=== PATIENT | female | born 1980 | race Caucasian/White ===

== ENCOUNTER 2019-02-20 20:17 | Emergency (ER) | payer MEDICAID ==
[2019-02-20 20:53] VITALS: BP 144/98
--- NOTE | 2019-02-20 21:01 | EDM.PDOC ---
ED HPI GENERAL MEDICAL PROBLEM - General Chief Complaint: General Stated Complaint: COLONOSCOPY PREP ISSUES Time Seen by Provider: 02/20/19 20:45 Source of Information: Reports: Patient History Limitations: Reports: No Limitations - History of Present Illness INITIAL COMMENTS - FREE TEXT/NARRATIVE: Poornima comes into [facility] ED with sxs of dizziness, lt headiness, malaise, and restlessness since initiating prep for a colonoscopy 2 days ago. There is no headache, chest pain, SOB, nausea, vomiting, or dilia abdominal pain. She has a hx of chronic diarrhea, without wt loss. There has been no blood in the stools observable. She is a Type II DM on insulin, and has been on clear liquids for the past 2 days. Her home BS 297 mg% at 6 pm. - Related Data Allergies Allergy/AdvReac Type Severity Reaction Status Date / Time citalopram [From Celexa] Allergy Other Verified 02/20/19 20:59 insulin glargine Allergy Burning Verified 02/20/19 20:58 [From Lantus U-100 Insulin] Home Meds: Home Meds Flaxseed Oil [Flax Oil] 1,000 mg PO DAILY 12/04/13 [History] Insulin Aspart [NovoLOG] 26 unit SQ TID 12/04/13 [History] metFORMIN [Glucophage XR] 500 mg PO DAILY 08/22/14 [History] Insulin Detemir [Levemir] 45 units SQ BID 01/03/16 [History] Exenatide Microspheres [Bydureon Pen] 2 mg SQ WEEKLY 06/25/18 [History] Lisinopril 2.5 mg PO DAILY 06/25/18 [History] Norgestimate-Ethinyl Estradiol [Jones-Linyah 28 Tablet] 1 tab PO DAILY 06/25/18 [ History] Propranolol [Inderal LA] 80 mg PO DAILY 06/25/18 [History] atorvaSTATin [Lipitor] 10 mg PO DAILY 06/25/18 [History] buPROPion [buPROPion XL] 150 mg PO DAILY 06/25/18 [History] Aspirin [Adult Low Dose Aspirin EC] 81 mg PO DAILY 02/20/19 [History] Hyoscyamine [Levsin] 0.125 mg PO Q4HR PRN 02/20/19 [History] Ketorolac [Toradol] 10 mg PO Q4H PRN 02/20/19 [History] Levothyroxine Sodium [Synthroid] 100 mcg PO DAILY 02/20/19 [History] Nitroglycerin 1 tab SL ASDIRECTED PRN 02/20/19 [History] Past Medical History - Past Health History Medical/Surgical History: Denies Medical/Surgical History Cardiovascular History: Reports: Hypertension Gastrointestinal History: Reports: Chronic Diarrhea Endocrine/Metabolic History: Reports: Diabetes, Type I, Hypothyroidism Social & Family History - Tobacco Use Smoking Status *Q: Former Smoker Packs/Tins Daily: 16 Used Tobacco, but Quit: No - Recreational Drug Use Other Recreational Drug Type: Patient denies recreational drug use. ED ROS GENERAL - Review of Systems Review Of Systems: ROS reveals no pertinent complaints other than HPI. ED EXAM, GENERAL - Physical Exam Exam: See Below Exam Limited By: No Limitations General Appearance: Alert, WD/WN, No Apparent Distress, Anxious, Obese Eye Exam: Bilateral Eye: EOMI, Normal Inspection, PERRL Ears: Normal External Exam Nose: Normal Inspection Throat/Mouth: Normal Inspection, Normal Oropharynx Head: Normocephalic Neck: Normal Inspection, Supple Respiratory/Chest: Lungs Clear, Normal Breath Sounds Cardiovascular: Regular Rate, Rhythm, No Murmur GI/Abdominal: Normal Bowel Sounds, Soft, Non-Tender, No Organomegaly, No Distention, No Mass (Female) Exam: Deferred Rectal (Female) Exam: Deferred Back Exam: Normal Inspection Extremities: Normal Inspection Neurological: Alert, Oriented, CN II-XII Intact, Normal Cognition, No Motor/ Sensory Deficits Psychiatric: Normal Affect, Anxious Skin Exam: Warm, Dry, Intact, Normal Color Lymphatic: No Adenopathy Course - Vital Signs Text/Narrative:: Screening labs were baseline. Reassurance given, and cleared to proceed with colonoscopy tomorrow. Last Recorded V/S: Last Vital Signs Temp 36.7 C 02/20/19 20:25 Pulse 114 H 02/20/19 20:25 Resp 16 02/20/19 20:25 BP 144/98 H 02/20/19 20:25 Pulse Ox 98 02/20/19 20:25 - Orders/Labs/Meds Labs: Laboratory Tests 02/20/19 02/20/19 Range/Units 21:03 21:03 WBC 12.9 H (4.5-12.0) X10-3/uL RBC 4.55 (3.23-5.20) x10(6)uL Hgb 13.7 (11.5-15.5) g/dL Hct 39.0 (30.0-51.3) % MCV 85.8 (80-96) fL MCH 30.1 (27.7-33.6) pg MCHC 35.0 (32.2-35.4) g/dL RDW 12.8 (11.5-15.5) % Plt Count 320 (125-369) X10(3)uL MPV 7.9 (7.4-10.4) fL Neut % (Auto) 60.7 (46-82) % Lymph % (Auto) 30.3 (13-37) % Jones % (Auto) 5.7 (4-12) % Eos % (Auto) 3 (1.0-5.0) % Baso % (Auto) 1 (0-2) % Neut # (Auto) 7.8 (1.6-8.3) # Lymph # (Auto) 3.9 (0.6-5.0) # Jones # (Auto) 0.7 (0.0-1.3) # Eos # (Auto) 0.4 (0.0-0.8) # Baso # (Auto) 0.1 (0.0-0.2) # Sodium 136 (135-145) mmol/L Potassium 4.3 (3.5-5.3) mmol/L Chloride 100 (100-110) mmol/L Carbon Dioxide 25 (21-32) mmol/L BUN 6 L (7-18) mg/dL Creatinine 0.9 (0.55-1.02) mg/dL Est Cr Clr Drug Dosing TNP Estimated GFR (MDRD) > 60 (>60) BUN/Creatinine Ratio 6.7 L (9-20) Glucose 279 H (80-116) mg/dL Calcium 9.5 (8.6-10.2) mg/dL Departure - Departure Time of Disposition: 21:33 Disposition: Home, Self-Care 01 Condition: Good Clinical Impression: Chronic diarrhea - Discharge Information *PRESCRIPTION DRUG MONITORING PROGRAM REVIEWED*: Not Applicable *COPY OF PRESCRIPTION DRUG MONITORING REPORT IN PATIENT MARIO: Not Applicable Referrals: Brody Ford MD [Primary Care Provider] - Forms: ED Department Discharge - Problem List & Annotations (1) Chronic diarrhea SNOMED Code(s): 969228551 Code(s): K52.9 - NONINFECTIVE GASTROENTERITIS AND COLITIS, UNSPECIFIED Status: Acute Current Visit: Yes Annotation/Comment:: Keep appt for colonoscopy in the am. - Problem List Review Problem List Initiated/Reviewed/Updated: Yes - Assessment/Plan Plan: Follow up with Surgeon.
== END 2019-02-20 22:00 | disposition home or self-care (01) ==
LOC: FB.ED 20:17
DX: K52.9 Noninfective gastroenteritis and colitis, unspecified (principal); I10 Essential (primary) hypertension; E10.9 Type 1 diabetes mellitus without complications; E03.9 Hypothyroidism, unspecified; Z87.891 Personal history of nicotine dependence; Z88.8 Allergy status to other drugs, medicaments and biological substances; Z79.4 Long term (current) use of insulin
CPT/HCPCS: 36415; 80048; 85025; 99283

== ENCOUNTER 2019-10-05 13:14 | Emergency (ER) | payer MEDICAID ==
--- NOTE | 2019-10-05 14:34 | EDM.PDOC ---
ED HPI GENERAL MEDICAL PROBLEM - General Stated Complaint: stroke like symptoms Time Seen by Provider: 10/05/19 13:55 Source of Information: Reports: Patient History Limitations: Reports: No Limitations - History of Present Illness INITIAL COMMENTS - FREE TEXT/NARRATIVE: states she has numbness and tingling on the right side of her face since 2 week s has persisted , then numbness around the mouth and in the hard and soft palate , has noted dizziness associated with changing position, like standing from sitting no numbness and tingling in the arms or legs noted Onset: Gradual Onset Date: 09/21/19 Duration: Week(s): (2) Location: Reports: Head, Face, Neck. Denies: Upper Extremity, Right, Lower Extremity, Left, Lower Extremity, Right, Generalized Quality: Reports: Other (tingling) Improves with: Reports: None Worsens with: Reports: None Associated Symptoms: Reports: No Other Symptoms - Related Data Allergies Allergy/AdvReac Type Severity Reaction Status Date / Time citalopram [From Celexa] Allergy Other Verified 02/20/19 20:59 insulin glargine Allergy Burning Verified 02/20/19 20:58 [From Lantus U-100 Insulin] Home Meds: Home Meds Flaxseed Oil [Flax Oil] 1,000 mg PO DAILY 12/04/13 [History] Insulin Aspart [NovoLOG] 26 unit SQ TID 12/04/13 [History] metFORMIN [Glucophage XR] 500 mg PO DAILY 08/22/14 [History] Insulin Detemir [Levemir] 45 units SQ BID 01/03/16 [History] Exenatide Microspheres [Bydureon Pen] 2 mg SQ WEEKLY 06/25/18 [History] Lisinopril 2.5 mg PO DAILY 06/25/18 [History] Norgestimate-Ethinyl Estradiol [Clare-Linyah 28 Tablet] 1 tab PO DAILY 06/25/18 [ History] Propranolol [Inderal LA] 80 mg PO DAILY 06/25/18 [History] atorvaSTATin [Lipitor] 10 mg PO DAILY 06/25/18 [History] buPROPion [buPROPion XL] 150 mg PO DAILY 06/25/18 [History] Aspirin [Adult Low Dose Aspirin EC] 81 mg PO DAILY 02/20/19 [History] Hyoscyamine [Levsin] 0.125 mg PO Q4HR PRN 02/20/19 [History] Ketorolac [Toradol] 10 mg PO Q4H PRN 02/20/19 [History] Levothyroxine Sodium [Synthroid] 100 mcg PO DAILY 02/20/19 [History] Nitroglycerin 1 tab SL ASDIRECTED PRN 02/20/19 [History] Past Medical History - Past Health History Medical/Surgical History: Denies Medical/Surgical History Cardiovascular History: Reports: Hypertension Other Cardiovascular History: States history of chest pain, palpitations, and elevated heart rate. Takes NTG prn and daily ASA. States history of cardiac catheterization. Gastrointestinal History: Reports: Chronic Diarrhea Genitourinary History: Reports: Other (See Below) Other Genitourinary History: States history of kidney stone. Neurological History: Reports: Migraines Endocrine/Metabolic History: Reports: Diabetes, Type I, Hypothyroidism - Past Surgical History HEENT Surgical History: Reports: Other (See Below) Other HEENT Surgeries/Procedures: States history of [place] teeth extraction. GI Surgical History: Reports: Cholecystectomy Female Surgical History: Reports: Section, LEEP ED ROS GENERAL - Review of Systems Review Of Systems: See Below Constitutional: Reports: No Symptoms HEENT: Reports: No Symptoms Respiratory: Reports: No Symptoms Cardiovascular: Reports: No Symptoms Endocrine: Reports: No Symptoms GI/Abdominal: Reports: No Symptoms Musculoskeletal: Reports: No Symptoms Skin: Reports: No Symptoms Neurological: Reports: Dizziness, Numbness, Paresthesia, Tingling (on right side of face). Denies: Headache, Tremors, Trouble Speaking, Change in Speech Psychiatric: Reports: No Symptoms ED EXAM, NEURO - Physical Exam Exam: See Below Exam Limited By: No Limitations General Appearance: Alert, WD/WN, No Apparent Distress Eye Exam: Bilateral Eye: EOMI Nose: Normal Inspection Throat/Mouth: Normal Oropharynx Head Exam: Atraumatic, Normocephalic Neck: Supple, Non-Tender, Full Range of Motion Respiratory/Chest: No Respiratory Distress, Lungs Clear, Normal Breath Sounds Cardiovascular: Regular Rate, Rhythm GI/Abdominal: Soft Neurological: Alert, Normal Mood/Affect, Normal Dorsiflexion, CN II-XII Intact, Normal Gait, No Motor/Sensory Deficits, Oriented x 3 DTR: 2+: Patella (R), Patella (L) Back Exam: Full Range of Motion Extremities: Normal Range of Motion Psychiatric: Normal Affect Skin Exam: Warm *Q Meaningful Use (ADM) - VTE *Q VTE Mechanical Contraindications *Q: Tx/Proc Refused byPt VTE Pharmacological Contraindications *Q: Not Candidate LT Anticoag VTE Anticoagulation Contraindications: Med Allergy/Intol/Interac - VTE Risk Assess *Q Each Risk Factor Represents 1 Point: None Total Score 1 Point Risk Factors: 0 - Stroke *Q Aspirin Contraindications Stroke *Q: Other (Use Special Inst) Anticoagulation Contraindications Stroke *Q: Med/TX Not Indicated/Need Antithrombotic Contraindications Stroke *Q: Med/TX Not Indicated/Need Thrombolytic/Fibrinolytic Contraindications Stroke *Q: Med/TX Not Indicated/Need Statin Contraindications Stroke *Q: Med/TX Not Indicated/Need Rehabilitation Assessment Contraindication *Q: Med/tx not indicated/need - AMI *Q Aspirin Contraindications AMI *Q: Med/TX Not Indicated/Need Thrombolytic/Fibrinolytic Contraindications IV (AMI) *Q: Med/tx not indicated/ need Statin Contraindications AMI *Q: Med/TX Not Indicated/Need Course - Orders/Labs/Meds Orders: Active Orders 24 hr Category Date Time Status Head wo Cont [CT] Stat Exams 10/05/19 14:32 Taken Labs: Laboratory Tests 10/05/19 10/05/19 10/05/19 Range/Units 14:45 14:45 14:45 WBC 12.2 H (4.5-12.0) X10-3/uL RBC 4.38 (3.23-5.20) x10(6)uL Hgb 12.5 (11.5-15.5) g/dL Hct 37.5 (30.0-51.3) % MCV 85.5 (80-96) fL MCH 28.6 (27.7-33.6) pg MCHC 33.5 (32.2-35.4) g/dL RDW 12.5 (11.5-15.5) % Plt Count 369 (125-369) X10(3)uL MPV 7.5 (7.4-10.4) fL Neut % (Auto) 64.4 (46-82) % Lymph % (Auto) 26.9 (13-37) % Clare % (Auto) 5.2 (4-12) % Eos % (Auto) 3 (1.0-5.0) % Baso % (Auto) 0 (0-2) % Neut # (Auto) 7.9 (1.6-8.3) # Lymph # (Auto) 3.3 (0.6-5.0) # Clare # (Auto) 0.6 (0.0-1.3) # Eos # (Auto) 0.4 (0.0-0.8) # Baso # (Auto) 0.0 (0.0-0.2) # Sodium 139 (135-145) mmol/L Potassium 4.2 (3.5-5.3) mmol/L Chloride 100 (100-110) mmol/L Carbon Dioxide 27 (21-32) mmol/L BUN 12 (7-18) mg/dL Creatinine 0.8 (0.55-1.02) mg/dL Est Cr Clr Drug Dosing TNP Estimated GFR (MDRD) > 60 (>60) BUN/Creatinine Ratio 15.0 (9-20) Glucose 193 H D (80-116) mg/dL Calcium 10.1 (8.6-10.2) mg/dL Magnesium 1.8 (1.8-2.5) mg/dL Departure - Departure Time of Disposition: 03:50 Disposition: Home, Self-Care 01 Condition: Good Clinical Impression: Right facial numbness, Migraine - Discharge Information *PRESCRIPTION DRUG MONITORING PROGRAM REVIEWED*: Not Applicable *COPY OF PRESCRIPTION DRUG MONITORING REPORT IN PATIENT MARIO: Not Applicable Instructions: Migraine Headache, [id number] Referrals: Edda Huynh, [employer] [Primary Care Provider] - Additional Instructions: Start vitamin B complex daily , OK to use Vitamin B12 also Make appointment to see your doctor if symptoms do not improve as expected Sepsis Event Note - Focused Exam Date Exam was Performed: 10/05/19 Time Exam was Performed: 15:42 - My Orders Last 24 Hours: My Active Orders 10/05/19 14:32 Head wo Cont [CT] Stat - Assessment/Plan Last 24 Hours: My Active Orders 10/05/19 14:32 Head wo Cont [CT] Stat
[2019-10-05 16:10] VITALS: BP 135/92; PULSE 98
--- NOTE | 2019-10-05 17:04 | CT ---
INDICATION: Right-sided facial numbness, dizziness x2 weeks. CT HEAD WITHOUT CONTRAST: Spiral 3.75 mm axial sections were obtained through the brain with sagittal and coronal reconstructions without IV contrast - no comparisons. Total exam DLP was 1270.76 mGy-cm. The paranasal sinuses were largely normally aerated with a few ethmoid air cells that showed some thickening of linings, possibly on a chronic basis. No findings to suggest acute paranasal sinusitis was identified. The mastoid air cells were well aerated. No cranial abnormality was seen. No shift of midline structures, ventricular abnormalities or abnormal areas of density were identified - no bleeding site or hematoma was seen. The orbits were normal in appearance. IMPRESSION: Essentially normal CT Brain without contrast. If symptoms persist - if occult abnormality is suspected clinically, reexamination with IV contrast may be helpful as well as MRI of the brain. Report was called to Dr. Banks at 1525 hours. [facility]
== END 2019-10-05 16:00 | disposition home or self-care (01) ==
LOC: FB.ED 13:14
DX: G43.909 Migraine, unspecified, not intractable, without status migrainosus (principal); R20.0 Anesthesia of skin; I10 Essential (primary) hypertension; E10.9 Type 1 diabetes mellitus without complications; E03.9 Hypothyroidism, unspecified; Z88.8 Allergy status to other drugs, medicaments and biological substances; Z79.4 Long term (current) use of insulin; Z79.82 Long term (current) use of aspirin; Z79.899 Other long term (current) drug therapy
CPT/HCPCS: 36415; 70450; 80048; 83735; 85025; 99284-25

== ENCOUNTER 2020-12-26 08:33 | Emergency (ER) | payer MEDICAID ==
--- NOTE | 2020-12-26 08:53 | EDM.PDOC ---
ED HPI GENERAL MEDICAL PROBLEM - General Stated Complaint: LOWER ABD AND BACK PAIN Time Seen by Provider: 12/26/20 08:50 Source of Information: Reports: Patient History Limitations: Reports: No Limitations - History of Present Illness INITIAL COMMENTS - FREE TEXT/NARRATIVE: 40-year-old female who had recent left ureterolithiasis and had stone removal and stent placement on 12/23/2020 by a urologist at [facility]. She states that she has had left back, flank and lower quadrant abdominal pain all through this but has been able take Tylenol and ibuprofen for pain with relief of her symptoms. Today she pulled the stent out (this was what was instructed of her by the urologist) and she states that since that stent has been pulled she has had increased pain in her left back, flank and lower abdomen that is up to an 8/10. It is sharp and throbbing and constant. She has had no nausea or vomiting with this. There have been no fevers or chills. No weakness or dizziness. She has been eating and drinking normally. She reports that Tylenol and ibuprofen are not helping with her pain. She is currently on no antibiotics. She reports that she pulled the stent at 6:30 AM today. There are no other associated signs or symptoms. There are no other modifying factors. 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: Acetaminophen, NSAIDS lower mid abd and left side flank Pain Score (Numeric/FACES): 8 - Related Data Allergies Allergy/AdvReac Type Severity Reaction Status Date / Time citalopram [From Celexa] Allergy Other Verified 10/05/19 18:08 insulin glargine Allergy Burning Verified 10/05/19 18:08 [From Lantus U-100 Insulin] Home Meds: Home Meds Flaxseed Oil [Flax Oil] 1,000 mg PO DAILY 12/04/13 [History] Insulin Aspart [NovoLOG] 26 unit SQ TID 12/04/13 [History] metFORMIN [Glucophage XR] 500 mg PO DAILY 08/22/14 [History] Insulin Detemir [Levemir] 45 units SQ BID 01/03/16 [History] Exenatide Microspheres [Bydureon Pen] 2 mg SQ WEEKLY 06/25/18 [History] Lisinopril 2.5 mg PO DAILY 06/25/18 [History] Propranolol [Inderal LA] 80 mg PO DAILY 06/25/18 [History] atorvaSTATin [Lipitor] 10 mg PO DAILY 06/25/18 [History] buPROPion [buPROPion XL] 150 mg PO DAILY 06/25/18 [History] norgestimate-ethinyl estradioL [Becker-Linyah 28 Tablet] 1 tab PO DAILY 06/25/18 [History] Aspirin [Adult Low Dose Aspirin EC] 81 mg PO DAILY 02/20/19 [History] Hyoscyamine [Levsin] 0.125 mg PO Q4HR PRN 02/20/19 [History] Ketorolac [Toradol] 10 mg PO Q4H PRN 02/20/19 [History] Levothyroxine Sodium [Synthroid] 100 mcg PO DAILY 02/20/19 [History] Nitroglycerin 1 tab SL ASDIRECTED PRN 02/20/19 [History] Acetaminophen/HYDROcodone [[place] 325-5 MG] 1 - 2 tab PO Q6H PRN #14 tab 12/26/20 [Rx] cephALEXin [Keflex] 500 mg PO TID 10 Days #30 cap 12/26/20 [Rx] Past Medical History Cardiovascular History: Reports: Arrhythmia (POTS), Hypertension Gastrointestinal History: Reports: Chronic Diarrhea Genitourinary History: Reports: Renal Calculus, Other (See Below) Musculoskeletal History: Reports: Fibromyalgia Neurological History: Reports: Migraines Psychiatric History: Reports: Anxiety, Depression Endocrine/Metabolic History: Reports: Diabetes, Type II, Hypothyroidism - Past Surgical History HEENT Surgical History: Reports: Oral Surgery ([place] teeth extraction.) GI Surgical History: Reports: Cholecystectomy Female Surgical History: Reports: Section, Cystoscopy, LEEP, Ureteral Stent Social & Family History - Tobacco Use Tobacco Use Status *Q: Unknown Ever Used Tobacco (Nonsmoker) - Caffeine Use Caffeine Use: Reports: None - Alcohol Use Alcohol Use History: No - Living Situation & Occupation Living situation: Reports: ED ROS GENERAL - Review of Systems Review Of Systems: See Below Constitutional: Reports: Malaise, Weakness HEENT: Reports: No Symptoms Respiratory: Reports: No Symptoms Cardiovascular: Reports: No Symptoms Endocrine: Reports: No Symptoms GI/Abdominal: Reports: Abdominal Pain : Reports: Flank Pain, Hematuria (With some clots.) Musculoskeletal: Reports: Back Pain (Left mid back) Skin: Reports: No Symptoms Neurological: Reports: No Symptoms Psychiatric: Reports: No Symptoms Hematologic/Lymphatic: Reports: No Symptoms Immunologic: Reports: No Symptoms ED EXAM, RENAL/ - Physical Exam Exam: See Below Exam Limited By: No Limitations General Appearance: Alert, Moderate Distress (Appears in pain. Is otherwise nontoxic.), Obese Eye Exam: Bilateral Eye: EOMI, Normal Inspection Ears: Normal External Exam, Hearing Grossly Normal Nose: Normal Inspection, Normal Mucosa, No Blood Throat/Mouth: Normal Inspection, Normal Oropharynx, Normal Voice, No Airway Compromise Head: Atraumatic, Normocephalic Neck: Normal Inspection, Supple, Non-Tender, Full Range of Motion Respiratory/Chest: No Respiratory Distress, Lungs Clear, Normal Breath Sounds, No Accessory Muscle Use Cardiovascular: Normal Peripheral Pulses, Regular Rate, Rhythm, No Murmur GI/Abdominal: Normal Bowel Sounds, Soft, No Mass, Tender (In lower quadrant and left flank area.) Back Exam: Full Range of Motion, CVA Tenderness (L). No: CVA Tenderness (R) Extremities: Normal Inspection, Normal Range of Motion, Non-Tender, No Pedal Edema, Normal Capillary Refill Neurological: Alert, Oriented, CN II-XII Intact, Normal Cognition, No Motor/Sensory Deficits Psychiatric: Normal Affect Skin Exam: Warm, Dry, Intact, Normal Color, No Rash Course - Vital Signs Last Recorded V/S: Last Vital Signs Temp 36.7 C 12/26/20 11:10 Pulse 79 12/26/20 11:10 Resp 17 12/26/20 11:10 BP 102/61 12/26/20 11:10 Pulse Ox 97 12/26/20 11:10 - Orders/Labs/Meds Labs: Laboratory Tests 12/26/20 12/26/20 12/26/20 Range/Units 09:30 09:30 09:30 WBC 15.1 H (3.0-10.3) x10-3/uL RBC 4.48 (3.60-5.20) x10(6)uL Hgb 12.8 (11.4-15.5) g/dL Hct 39.5 (34.2-48.2) % MCV 88.0 (76.7-100.5) fL MCH 28.6 (23.9-33.9) pg MCHC 32.5 (31.9-34.8) g/dL RDW 14.1 (12.3-16.5) % Plt Count 361 (151-488) x10(3)uL MPV 7.6 (7.1-12.4) fL Neut % (Auto) 76.1 (30.8-76.2) % Lymph % (Auto) 16.1 L (18.4-52.1) % Becker % (Auto) 5.0 (4.4-15.7) % Eos % (Auto) 2.1 (0.6-8.1) % Baso % (Auto) 0.7 (0.2-1.5) % Neut # (Auto) 11.5 H (1.5-6.3) x10-3/uL Lymph # (Auto) 2.4 (1.0-4.4) x10-3/uL Becker # (Auto) 0.8 (0.3-1.0) x10-3/uL Eos # (Auto) 0.3 (0.0-0.8) x10-3/uL Baso # (Auto) 0.1 (0.0-0.1) x10-3/uL Sodium 137 (135-145) mmol/L Potassium 4.6 (3.5-5.3) mmol/L Chloride 100 (100-110) mmol/L Carbon Dioxide 28 (21-32) mmol/L BUN 13 (7-18) mg/dL Creatinine 1.1 H (0.55-1.02) mg/dL Est Cr Clr Drug Dosing 64.28 mL/min Estimated GFR (MDRD) 55 L (>60) BUN/Creatinine Ratio 11.8 (9-20) Glucose 207 H (80-116) mg/dL Lactic Acid 1.5 (0.4-2.0) mmol/L Calcium 9.3 (8.6-10.2) mg/dL Urine Color (YELLOW) Urine Appearance (CLEAR) Urine pH (5.0-6.5) Ur Specific Nichols (1.010-1.025) Urine Protein (NEGATIVE) mg/dL Urine Glucose (UA) (NORMAL) mg/dL Urine Ketones (NEGATIVE) mg/dL Urine Occult Blood (NEGATIVE) Urine Nitrite (NEGATIVE) Urine Bilirubin (NEGATIVE) Urine Urobilinogen (NEGATIVE) mg/dL Ur Leukocyte Esterase (NEGATIVE) Urine RBC (0-5) Urine WBC (0-5) 04// Range/Units 10:10 WBC (3.0-10.3) x10-3/uL RBC (3.60-5.20) x10(6)uL Hgb (11.4-15.5) g/dL Hct (34.2-48.2) % MCV (76.7-100.5) fL MCH (23.9-33.9) pg MCHC (31.9-34.8) g/dL RDW (12.3-16.5) % Plt Count (151-488) x10(3)uL MPV (7.1-12.4) fL Neut % (Auto) (30.8-76.2) % Lymph % (Auto) (18.4-52.1) % Becker % (Auto) (4.4-15.7) % Eos % (Auto) (0.6-8.1) % Baso % (Auto) (0.2-1.5) % Neut # (Auto) (1.5-6.3) x10-3/uL Lymph # (Auto) (1.0-4.4) x10-3/uL Becker # (Auto) (0.3-1.0) x10-3/uL Eos # (Auto) (0.0-0.8) x10-3/uL Baso # (Auto) (0.0-0.1) x10-3/uL Sodium (135-145) mmol/L Potassium (3.5-5.3) mmol/L Chloride (100-110) mmol/L Carbon Dioxide (21-32) mmol/L BUN (7-18) mg/dL Creatinine (0.55-1.02) mg/dL Est Cr Clr Drug Dosing mL/min Estimated GFR (MDRD) (>60) BUN/Creatinine Ratio (9-20) Glucose (80-116) mg/dL Lactic Acid (0.4-2.0) mmol/L Calcium (8.6-10.2) mg/dL Urine Color Other (YELLOW) Urine Appearance Cloudy (CLEAR) Urine pH 6.0 (5.0-6.5) Ur Specific Nichols 1.015 (1.010-1.025) Urine Protein 100 H (NEGATIVE) mg/dL Urine Glucose (UA) >1000 H (NORMAL) mg/dL Urine Ketones Negative (NEGATIVE) mg/dL Urine Occult Blood Large H (NEGATIVE) Urine Nitrite Negative (NEGATIVE) Urine Bilirubin Negative (NEGATIVE) Urine Urobilinogen Normal (NEGATIVE) mg/dL Ur Leukocyte Esterase Moderate H (NEGATIVE) Urine RBC Packed H (0-5) Urine WBC Packed H (0-5) Meds: Medications Discontinued Medications Generic Name Dose Route Start Last Admin Trade Name Freq PRN Reason Stop Dose Admin Hydrocodone Bitart/Acetaminophen 2 tab 12/26/20 09:11 12/26/20 09:16 Acetaminophen/Hydrocodone 325-5 Mg Tab PO 12/26/20 09:12 2 tab ONETIME ONE Administration Ceftriaxone Sodium 1 gm 12/26/20 10:43 12/26/20 10:55 Ceftriaxone 1 Gm Vial IM 12/26/20 10:44 1 gm ONETIME ONE Administration Ketorolac Tromethamine 60 mg 12/26/20 09:11 12/26/20 09:16 Ketorolac 60 Mg/2 Ml Sdv IM 12/26/20 09:12 60 mg ONETIME ONE Administration - Re-Assessments/Exams Free Text/Narrative Re-Assessment/Exam: 12/26/20 09:15: I discussed the patient's case with Dr. Hyatt, urologist at [facility], and he felt that this was to be expected and very common post stent removal. He did recommend that I check some blood tests including a CBC, BUN and creatinine, lactic acid and urinalysis. The patient should be treated with antibiotics if there is evidence of infection. He did not feel that any other testing including CT scan would be necessary at this point. He also recommended that I give the patient Toradol and narcotics for pain and to get the patient's pain under control. 12/26/20 10:35: Patient's white blood cell, was elevated at 15,000. Her urinalysis had full field of both red cells and white cells and bacteria present. Her creatinine was 1.1. After the Toradol and hydrocodone that I had given her earlier, she feels much improved and her pain is now down to a 1-2/10. I we will treat the patient with Rocephin [address] patient on Keflex 500 mg 3 times a day for 10 days. The patient should follow-up with her urologist. I feel that she is stable for discharge and she and her significant other are comfortable with this plan. I discussed all of this with the patient and with her and answered their questions. Departure - Departure Time of Disposition: 10:54 Disposition: Home, Self-Care 01 Condition: Good Clinical Impression: Other acute postprocedural pain UTI (urinary tract infection) Qualifiers: Urinary tract infection type: site unspecified Hematuria presence: with hematuria Qualified Code(s): N39.0 - Urinary tract infection, site not specified - Discharge Information Prescriptions: cephALEXin [Keflex] 500 mg PO TID 10 Days #30 cap Acetaminophen/HYDROcodone [[place] 325-5 MG] 1 - 2 tab PO Q6H PRN #14 tab PRN Reason: Moderate to severe pain Instructions: Urinary Tract Infection, Adult, [id number], Pain Medicine Instructions, [id number] Referrals: Brody Ford MD [Primary Care Provider] - Forms: ED Department Discharge Additional Instructions: Your blood tests did show an elevated white blood cell count. Your kidney function was normal. Your blood sugar was elevated. Your urine test did show evidence of infection. I am placing you on antibiotics (Keflex) to treat the infection and you were given an antibiotic shot in the emergency department. I have also given you a prescription for pain medications that you can take for moderate to severe pain (hydrocodone 5/325). You can also take ibuprofen 600-800 mg by mouth every 6-8 hours as needed for pain. Increase your fluid intake. Up with your urologist. Back to the emergency department for creasing pain, fever, unrelenting vomiting, severe weakness or any other concerning signs or symptoms. Sepsis Event Note (ED) - Focused Exam Vital Signs: Vital Signs Temp Pulse Resp BP Pulse Ox 12/26/20 11:10 36.7 C 79 17 102/61 97 12/26/20 08:33 36.8 C 95 17 116/72 98
[2020-12-26] MEDS ORDERED: Ketorolac 60 MG/2 ML SDV IM ONE (09:11)
[2020-12-26] MEDS ORDERED: Acetaminophen/HYDROcodone 325-5 MG Tab PO ONE (09:11)
[2020-12-26] MEDS ORDERED: cefTRIAXone 1 GM Vial IM ONE (10:43)
[2020-12-26 11:19] VITALS: BP 102/61; PULSE 79
== END 2020-12-26 11:15 | disposition home or self-care (01) ==
LOC: FB.ED 08:33
DX: N39.0 Urinary tract infection, site not specified (principal); G89.18 Other acute postprocedural pain; I10 Essential (primary) hypertension; E11.9 Type 2 diabetes mellitus without complications; E03.9 Hypothyroidism, unspecified; Z88.8 Allergy status to other drugs, medicaments and biological substances; Z79.4 Long term (current) use of insulin; Z79.82 Long term (current) use of aspirin; Z79.899 Other long term (current) drug therapy
CPT/HCPCS: 36415; 80048; 81001; 83605; 85025; 96372; 99284; A9270; J0696; J1885